=== PATIENT | male | born 1960 | race Caucasian/White ===

== ENCOUNTER 2016-12-15 08:49 | Emergency (ER) | payer OTHER ==
[~2016-12-15] VITALS: Ht 177.8 cm; Wt 95.3 kg
[~2016-12-15 08:49] MED LIST: ASPI650T2 OR; EFFIENT PO; FISHCAP PO; MOTR200T4 PO; MULTIVIT PO; VITAMIN C PO
[2016-12-15] MEDS ORDERED: AMLO2.5T (08:57)
[2016-12-15] MEDS ORDERED: EFFI10TA4 (08:57)
[2016-12-15] MEDS ORDERED: ASPIRIN 81 MG CHEW TABLET PO ONE (09:00)
[2016-12-15] MEDS ORDERED: NS 500 ML IV ONE (09:00)
[2016-12-15] MEDS ORDERED: MORPHINE 4 MG/ML 1ML SYRINGE IV ONE (09:15)
--- NOTE | 2016-12-15 09:27 | REP ---
AP PORTABLE CHEST: 12/15/2016. Clinical history: Chest pain. Comparison: 02/25/2014, 09/27/2011. Findings: The lung gavin are well inflated. There is no effusion, infiltrate, atelectasis or mass. The heart, mediastinal and hilar contours are unchanged and unremarkable. The aorta is mildly tortuous but normal for age. Airway midline. Bones without acute finding. No free air under the diaphragm. Impression: 1. No acute cardiopulmonary change, stable chest. Signed by Sonido Tarango MD 12/15/2016 04:43 P
[2016-12-15] MEDS ORDERED: levETIRAcetam INJection 1,000 MG in D5W 100 ML IV ONE (09:30)
[2016-12-15 09:36] LABS: BASO # 0.1 K/mm3 (0.0-0.2); BASO % 0.5 % (0.0-1.0); EOS # 0.2 K/mm3 (0.0-0.50); EOS % 1.1 % (0.0-3.0); LARGE UNSTAINED CELL # 0.2 K/mm3 (0.0-0.4); LARGE UNSTAINED CELL % 1.7 % (0.0-4.0); LYMPH # 3.3 K/mm3 (1.5-4.5); LYMPH % 23.4 % (24.0-44.0); MEAN CORPUSCULAR HEMOGLOBIN 30.5 pg (27.0-33.0); MEAN CORPUSCULAR HGB CONC 33.5 g/dl (32.0-36.5); MEAN CORPUSCULAR VOLUME 91.2 fl (80.0-96.0); MONO # 0.8 K/mm3 (0.0-0.8); MONO % 5.7 % (0.0-5.0); NEUTROPHILS % 67.5 % (36.0-66.0); PLATELET COUNT, AUTOMATED 200 k/mm3 (150-450); RED CELL DISTRIBUTION WIDTH 13.5 % (11.5-14.5); WHITE BLOOD COUNT 13.3 K/mm3 (4.0-10.0)
[2016-12-15 09:56] LABS: ANION GAP 11 MEQ/L (8-16); BLOOD UREA NITROGEN 9 MG/DL (7-18); CALCIUM LEVEL 9.3 MG/DL (8.5-10.1); CARBON DIOXIDE LEVEL 23 MEQ/L (21-32); CHLORIDE LEVEL 104 MEQ/L (98-107); CREATININE FOR GFR 1.29 MG/DL (0.70-1.30); GLOMERULAR FILTRATION RATE > 60.0 (>56); GLUCOSE, FASTING 113 MG/DL (70-105); POTASSIUM SERUM 3.5 MEQ/L (3.5-5.1); SODIUM LEVEL 138 MEQ/L (136-145)
[2016-12-15] MEDS ORDERED: ISOVUE-370 76% 100ML VIAL (Q9967) As Ordered ONE (10:39)
--- NOTE | 2016-12-15 11:08 | ECGEPIP ---
Stationary ECG Study [facility] - ED Test Date: 2016-12-15 Pat Name: JESUS FREEMAN Department: Room: - Gender: M In[employer]: perfecto : 1960 Requested By: NUNO Vuong Order Number: [id number] Reading MD: Gail Manuel Measurements Intervals [place] Rate: 66 P: -79 [place]: 137 QRS: 22 QRSD: 92 T: -18 QT: 430 QTc: 454 Interpretive Statements JUNCTIONAL RHYTHM MODERATE ST DEPRESSION Electronically Signed On 12-15-2016 11:08:12 EDT by Gail Manuel
--- NOTE | 2016-12-15 12:02 | REP ---
CT ANGIOGRAM OF THE CHEST: TECHNIQUE: Axial contrast enhanced images from the thoracic inlet to the upper abdomen using 100 mL Isovue 370 intravenous contrast material with multiplanar reformations. There is no CT evidence of pulmonary embolism or aortic dissection. Root of the aorta is slightly ectatic at 4 cm. Heart is not enlarged. There is no pleural or pericardial effusion. No adenopathy is seen. No infiltrates are seen. Visualized upper abdominal structures are unremarkable. IMPRESSION: No CT evidence of pulmonary embolism or other acute abnormality. Signed by Blaine Solorio MD 12/15/2016 05:17 P
[2016-12-15] MEDS ORDERED: ENOXAPARIN 100MG/1ML SYRINGE (J1650) SC ONE (12:15)
[2016-12-15 13:12] LABS: CREATININE FOR GFR 1.12 MG/DL (0.70-1.30); GLOMERULAR FILTRATION RATE > 60.0 (>56)
[2016-12-15 13:26] VITALS: BP 127/85
[2016-12-15] MEDS ORDERED: HEPARIN 25,000 UNITS/250 ML D5W BAG (100 UNITS/ML) As Ordered ONE (13:39)
[2016-12-15] MEDS ORDERED: HEPARIN DRIP 25,000 UNITS in APPROPRIATE DILUENT 1 EA IV SCH (13:42)
[2016-12-15] MEDS ORDERED: HEPARIN SOD (PORCINE) 5000 UNITS/ML VIAL IV ONE (13:45)
--- NOTE | 2016-12-17 14:33 | ECGEPIP ---
Stationary ECG Study [facility] - ED Test Date: 2016-12-15 Pat Name: JESUS FREEMAN Department: Room: - Gender: M [employer] Professor: perfecto : 1960 Requested By: NUNO Vuong Order Number: [id number] Reading MD: Gail Manuel Measurements Intervals [place] Rate: 61 P: 55 [place]: 200 QRS: 2 QRSD: 106 T: 60 QT: 465 QTc: 469 Interpretive Statements SINUS RHYTHM NONSPECIFIC T-WAVE ABNORMALITY PROLONGED QT INTERVAL Electronically Signed On 12-17-2016 14:33:24 EDT by Gail Manuel
== END 2016-12-15 13:59 | disposition short-term general hospital (02) ==
LOC: M ED 09:34
DX: I20.0 Unstable angina (principal); R07.9 Chest pain, unspecified; Z95.5 Presence of coronary angioplasty implant and graft; R94.31 Abnormal electrocardiogram [ECG] [EKG]; Z91.89 Other specified personal risk factors, not elsewhere classified; Z88.8 Allergy status to other drugs, medicaments and biological substances; Z88.2 Allergy status to sulfonamides
CPT/HCPCS: 71010; 71275; 80048; 82550; 82553; 82565; 83880; 85025; 93005; 93041; 94760; 96374; 96375; 99285; Q9967

== ENCOUNTER 2017-06-23 14:37 | Emergency (ER) | payer OTHER, SELFPAY ==
[~2017-06-23] VITALS: Ht 172.7 cm; Wt 87.3 kg
[~2017-06-23 14:37] MED LIST changes: +AMLO2.5T; +EFFI10TA4
[2017-06-23] MEDS ORDERED: METO1TAB87 PO (14:57)
[2017-06-23] MEDS ORDERED: ASPI1TAB PO (14:57)
[2017-06-23] MEDS ORDERED: ONDANSETRON 4MG/2ML VIAL (J2405) IV ONE (16:45)
[2017-06-23] MEDS ORDERED: MORPHINE 4 MG/ML 1ML SYRINGE IV ONE ×2 (16:45→18:30)
[2017-06-23] MEDS ORDERED: NS 500 ML IV ONE (16:45)
[2017-06-23 17:10] LABS: BASO # 0.1 10^3/uL (0.0-0.2); BASO % 0.6 % (0.0-1.0); EOS # 0.4 10^3/uL (0.0-0.50); EOS % 3.4 % (0.0-3.0); IMMATURE GRANULOCYTE % 0.5 % (0-0); LYMPH # 2.5 10^3/uL (1.5-4.5); LYMPH % 19.4 % (24.0-44.0); MEAN CORPUSCULAR HGB CONC 31.8 g/dl (32.0-36.5); MEAN CORPUSCULAR VOLUME 94.2 fl (80.0-96.0); MONO % 7.7 % (0.0-5.0); NEUTROPHILS # 8.9 10^3/uL (1.8-7.7); NEUTROPHILS % 68.4 % (36.0-66.0); PLATELET COUNT, AUTOMATED 390 10^3/uL (150-450); RED CELL DISTRIBUTION WIDTH 13.9 % (11.5-14.5); WHITE BLOOD COUNT 13.1 10^3/uL (4.0-10.0)
[2017-06-23 17:20] LABS: INR 1.1
[2017-06-23 17:26] LABS: CALCIUM LEVEL 8.6 MG/DL (8.5-10.1); CREATININE FOR GFR 1.35 MG/DL (0.70-1.30); GLOMERULAR FILTRATION RATE 58.2 (>56); POTASSIUM SERUM 4.8 MEQ/L (3.5-5.1)
[2017-06-23 17:34] LABS: ERYTHROCYTE SEDIMENTATION RATE 51 mm/hr (0-20)
--- NOTE | 2017-06-23 18:40 | REPUSA ---
Clinical history: Pain, swelling. Findings: The common femoral, superficial femoral, popliteal, and other deep venous structures compre ss normally and demonstrate normal color Doppler flow. Normal venous waveforms with augmentation are seen. There is a complex fluid collection along the medial left lower thigh. There is a single enlarg ed left inguinal lymph node. Impression: 1. No evidence of deep vein thrombosis in the left femoral popliteal venous system. 2. Complex fluid collection in the subcutaneous tissues in the lateral left thigh. 3. Single enlarged left inguinal lymph node.
[2017-06-23] MEDS ORDERED: CEFTAROLINE FOSAMIL 600 MG in D5W 50 ML IV ONE (18:45)
[2017-06-23] MEDS ORDERED: CLEO300C2 PO (19:26)
[2017-06-23 19:28] VITALS: BP 105/60
[2017-06-23] MEDS ORDERED: CLINDAMYCIN 150 MG CAP PO ONE (19:30)
== END 2017-06-23 19:39 | disposition left against medical advice (07) ==
LOC: M ED 14:37
DX: L03.314 Cellulitis of groin (principal); L03.116 Cellulitis of left lower limb; Z95.1 Presence of aortocoronary bypass graft; I25.10 Atherosclerotic heart disease of native coronary artery without angina pectoris; I10 Essential (primary) hypertension; R59.0 Localized enlarged lymph nodes; Z79.82 Long term (current) use of aspirin; Z79.899 Other long term (current) drug therapy; Z88.2 Allergy status to sulfonamides; Z88.8 Allergy status to other drugs, medicaments and biological substances; Z91.018 Allergy to other foods
CPT/HCPCS: 80048; 85025; 85610; 85652; 85730; 86140; 87040; 93971; 96361; 96365; 96374; 96375; 99284; J2405

== ENCOUNTER 2018-01-07 12:31 | Emergency (ER) | payer OTHER ==
[2018-01-07 13:53] LABS: BASO % 0.3 % (0.0-1.0); EOS % 0.4 % (0.0-3.0); HEMATOCRIT 44.2 % (42.0-52.0); HEMOGLOBIN 14.9 g/dl (13.5-17.5); IMMATURE GRANULOCYTE % 0.3 % (0-3.0); LYMPH # 1.6 10^3/uL (1.5-4.5); LYMPH % 15.3 % (24.0-44.0); MEAN CORPUSCULAR HGB CONC 33.7 g/dl (32.0-36.5); MEAN CORPUSCULAR VOLUME 89.1 fl (80.0-96.0); MONO # 1.2 10^3/uL (0.0-0.8); MONO % 10.9 % (0.0-5.0); NEUTROPHILS # 7.7 10^3/uL (1.8-7.7); NEUTROPHILS % 72.8 % (36.0-66.0); PLATELET COUNT, AUTOMATED 212 10^3/uL (150-450); RED BLOOD COUNT 4.96 10^6/uL (4.30-6.10); WHITE BLOOD COUNT 10.5 10^3/uL (4.0-10.0)
[2018-01-07] MEDS: ACETAMINOPHEN TAB 650MG DOSE (2X325MG) PO (14:05)
[2018-01-07] MEDS: NS 1,000 ML IV (14:06)
[2018-01-07 14:12] LABS: LACTIC ACID SEPSIS PROTOCOL 0.9 MMOL/L (0.4-2.0)
[2018-01-07 14:12] LABS: ALBUMIN 3.5 GM/DL (3.2-5.2); ALBUMIN/GLOBULIN RATIO 0.88 (1.00-1.93); ALKALINE PHOSPHATASE 91 U/L (45-117); ALT/SGPT 16 U/L (12-78); ANION GAP 7 MEQ/L (8-16); AST/SGOT 10 U/L (7-37); BILIRUBIN,DIRECT 0.1 MG/DL (0.0-0.2); BILIRUBIN,TOTAL 0.5 MG/DL (0.2-1.0); BLOOD UREA NITROGEN 10 MG/DL (7-18); CALCIUM LEVEL 8.3 MG/DL (8.5-10.1); CARBON DIOXIDE LEVEL 27 MEQ/L (21-32); CHLORIDE LEVEL 106 MEQ/L (98-107); CREATININE FOR GFR 1.36 MG/DL (0.70-1.30); GLOMERULAR FILTRATION RATE 57.5 (>56); GLUCOSE, FASTING 113 MG/DL (70-100); POTASSIUM SERUM 3.2 MEQ/L (3.5-5.1); SODIUM LEVEL 140 MEQ/L (136-145); TOTAL PROTEIN 7.5 GM/DL (6.4-8.2)
[2018-01-07 14:16] LABS: KETONE, URINE AUTO RFX NEGATIVE (NEGATIVE); LEUKOCYTE ESTERASE UR AUTO RFX NEGATIVE (NEGATIVE); MUCUS, URINE RFX SMALL (NEGATIVE); NITRITE, URINE AUTO RFX NEGATIVE (NEGATIVE); RBC, URINE AUTO RFX 4 /HPF (0-3); SPECIFIC GRAVITY UR AUTO RFX 1.021 (1.002-1.035); SQUAM EPITHELIAL CELL UR AURFX 0 /HPF (0-6); WBC, URINE AUTO RFX 2 /HPF (0-3)
[2018-01-07] MEDS: cefTRIAXone SOD 1 GM in D5W MINI-BAG PLUS 50 ML IV (15:17)
[2018-01-07] MEDS: POTASSIUM CHLORIDE 10 MEQ SR TABLET PO (15:17)
[2018-01-07] MEDS: AZITHROMYCIN 250 MG TAB PO (15:42)
== END 2018-01-07 15:57 | disposition home or self-care (01) ==
LOC: M ED 12:31
DX: J18.9 Pneumonia, unspecified organism (principal); I25.10 Atherosclerotic heart disease of native coronary artery without angina pectoris; I11.9 Hypertensive heart disease without heart failure; I25.2 Old myocardial infarction; M54.9 Dorsalgia, unspecified; E78.9 Disorder of lipoprotein metabolism, unspecified; Z95.5 Presence of coronary angioplasty implant and graft; Z95.1 Presence of aortocoronary bypass graft; Z87.442 Personal history of urinary calculi; Z87.891 Personal history of nicotine dependence; Z88.2 Allergy status to sulfonamides; Z88.8 Allergy status to other drugs, medicaments and biological substances; Z79.82 Long term (current) use of aspirin; Z79.02 Long term (current) use of antithrombotics/antiplatelets
CPT/HCPCS: J0696

== ENCOUNTER → 2018-09-23 | Outpatient (CLI) | payer OTHER ==
[~2018-09-23] MED LIST changes: -AMLO2.5T; +AMLO2.5T3; +ASPI1TAB PO; +AZIT-12 PO; +BRIL90TA; +CLEO300C2 PO; +GASTROGRAFIN SOLUTION 30ML (Q9963) As Ordered ONE; +IBUP-1022 PO; +ISOVUE-370 76% 100ML VIAL (Q9967) As Ordered ONE; +METO1TAB87 PO
--- NOTE | 2018-09-23 19:38 | REP ---
CT of the abdomen and pelvis with IV and oral contrast for right lower quadrant abdominal pain: Comparison is five 08/01/2015. The visualized lung gavin are unremarkable. The hepatic parenchyma is homogeneous and unremarkable. The gallbladder is unremarkable. The pancreatic duct is diffusely dilated as an interval change measuring up to 8 mm in diameter. There is no peripancreatic inflammation or pseudocyst. The common biliary duct is not dilated. I would recommend follow-up pancreatic MRI to evaluate for pancreatic duct obstructing nodule. The spleen is normal size and unremarkable. The adrenals are unremarkable. The right kidney is unremarkable except for a tiny 5 mm renal cortical cyst at the upper pole. Left knee kidney contains to lower pole exophytic cysts. The largest measures 7.5 cm diameter (7 cm previously). There is a tiny mural calcific plaque along its posterior wall. This is a Bosniak category two simple cyst. There is an exophytic 4 mm left renal lower pole cyst. This is a Bosniak category one simple cyst. The abdominal aorta demonstrates mild aneurysmal dilatation measuring up to 3.0 cm distally. There is no periaortic adenopathy or mass. There is no bowel distension or obstruction. There is wall thickening of the sigmoid colon, nonspecific but could represent colitis in the appropriate clinical setting. There are a few tiny sigmoid colon diverticula without CT evidence of acute diverticulitis. Pelvis: The appendix is unremarkable. There is no ascites or adenopathy. The bladder is unremarkable. Impression: Diffuse dilatation of the pancreatic duct. Follow-up pancreatic MRI is recommended. To large exophytic benign cyst at the lower pole of the left kidney. Sigmoid colon wall thickening compatible with colitis in the appropriate clinical setting. The appendix is unremarkable. The terminal ileum is unremarkable. No adenopathy or ascites. Electronically Signed by Blaine Waterman MD 09/23/2018 07:29 P
== END ==
LOC: M RAD 15:58
PROVIDERS: ATTEND Nurse Practitioner Adult Health
DX: R10.31 Right lower quadrant pain (principal); G89.29 Other chronic pain; K59.00 Constipation, unspecified; N28.1 Cyst of kidney, acquired; K57.30 Diverticulosis of large intestine without perforation or abscess without bleeding
CPT/HCPCS: 74177; Q9963; Q9967

== ENCOUNTER → 2018-11-19 | Outpatient (REF) | payer OTHER ==
[~2018-11-19] MED LIST changes: -ASPI1TAB PO; +ASPI81TA26 PO; -GASTROGRAFIN SOLUTION 30ML (Q9963) As Ordered ONE; -ISOVUE-370 76% 100ML VIAL (Q9967) As Ordered ONE
[2018-11-19 17:14] LABS: ALBUMIN 3.6 GM/DL (3.2-5.2); ALT/SGPT 51 U/L (12-78); BILIRUBIN,TOTAL 0.4 MG/DL (0.2-1.0); BLOOD UREA NITROGEN 12 MG/DL (7-18); CALCIUM LEVEL 9.3 MG/DL (8.5-10.1); CARBON DIOXIDE LEVEL 27 MEQ/L (21-32); CHLORIDE LEVEL 106 MEQ/L (98-107); CREATININE FOR GFR 1.21 MG/DL (0.70-1.30); GLOMERULAR FILTRATION RATE > 60.0 (>56); GLUCOSE, FASTING 135 MG/DL (70-100); POTASSIUM SERUM 4.2 MEQ/L (3.5-5.1); PREALBUMIN 18.6 MG/DL (20.0-40.0); SODIUM LEVEL 138 MEQ/L (136-145); TOTAL PROTEIN 6.7 GM/DL (6.4-8.2)
[2018-11-19 17:20] LABS: BASO # 0.1 10^3/uL (0.0-0.2); BASO % 0.7 % (0.0-1.0); EOS # 0.4 10^3/uL (0.0-0.50); EOS % 3.3 % (0.0-3.0); HEMATOCRIT 42.8 % (42.0-52.0); HEMOGLOBIN 13.9 g/dl (13.5-17.5); LYMPH # 2.4 10^3/uL (1.5-4.5); LYMPH % 21.7 % (24.0-44.0); MEAN CORPUSCULAR HGB CONC 32.5 g/dl (32.0-36.5); MEAN CORPUSCULAR VOLUME 92.2 fl (80.0-96.0); MONO # 0.7 10^3/uL (0.0-0.8); MONO % 6.2 % (0.0-5.0); NEUTROPHILS # 7.5 10^3/uL (1.8-7.7); NEUTROPHILS % 67.6 % (36.0-66.0); PLATELET COUNT, AUTOMATED 392 10^3/uL (150-450); RED BLOOD COUNT 4.64 10^6/uL (4.30-6.10); WHITE BLOOD COUNT 11.2 10^3/uL (4.0-10.0)
== END ==
LOC: M LABDRWAD 15:53
PROVIDERS: ATTEND Surgery
DX: C25.0 Malignant neoplasm of head of pancreas (principal)

== ENCOUNTER → 2018-12-09 | Outpatient (REF) | payer OTHER ==
[2018-12-09 12:46] LABS: BASO # 0.1 10^3/uL (0.0-0.2); BASO % 0.7 % (0.0-1.0); EOS # 0.2 10^3/uL (0.0-0.50); EOS % 2.2 % (0.0-3.0); HEMATOCRIT 44.1 % (42.0-52.0); HEMOGLOBIN 14.1 g/dl (13.5-17.5); LYMPH # 2.1 10^3/uL (1.5-4.5); LYMPH % 23.3 % (24.0-44.0); MEAN CORPUSCULAR HEMOGLOBIN 29.7 pg (27.0-33.0); MONO # 0.6 10^3/uL (0.0-0.8); MONO % 6.1 % (0.0-5.0); NEUTROPHILS # 6.2 10^3/uL (1.8-7.7); NEUTROPHILS % 67.5 % (36.0-66.0); PLATELET COUNT, AUTOMATED 227 10^3/uL (150-450); RED BLOOD COUNT 4.74 10^6/uL (4.30-6.10); WHITE BLOOD COUNT 9.1 10^3/uL (4.0-10.0)
[2018-12-09 13:13] LABS: ALBUMIN 3.7 GM/DL (3.2-5.2); ALT/SGPT 32 U/L (12-78); BILIRUBIN,TOTAL 0.5 MG/DL (0.2-1.0); BLOOD UREA NITROGEN 10 MG/DL (7-18); CALCIUM LEVEL 8.8 MG/DL (8.5-10.1); CARBON DIOXIDE LEVEL 28 MEQ/L (21-32); CHLORIDE LEVEL 107 MEQ/L (98-107); CREATININE FOR GFR 1.12 MG/DL (0.70-1.30); GLOMERULAR FILTRATION RATE > 60.0 (>56); GLUCOSE, FASTING 102 MG/DL (70-100); POTASSIUM SERUM 4.1 MEQ/L (3.5-5.1); PREALBUMIN 23.3 MG/DL (20.0-40.0); SODIUM LEVEL 139 MEQ/L (136-145)
== END ==
LOC: M LABDRWAD 12:13
PROVIDERS: ATTEND Physician Assistant
DX: C25.9 Malignant neoplasm of pancreas, unspecified (principal)

== ENCOUNTER → 2020-01-16 | Outpatient (REF) | payer OTHER ==
[2020-01-16 18:12] LABS: BASO # 0.1 10^3/uL (0.0-0.2); BASO % 0.6 % (0.0-1.0); EOS # 0.1 10^3/uL (0.0-0.5); EOS % 1.6 % (0.0-3.0); HEMATOCRIT 44.5 % (42.0-52.0); HEMOGLOBIN 14.5 g/dl (13.5-17.5); LYMPH % 23.5 % (24.0-44.0); MEAN CORPUSCULAR HEMOGLOBIN 31.4 pg (27.0-33.0); MEAN CORPUSCULAR HGB CONC 32.6 g/dl (32.0-36.5); MEAN CORPUSCULAR VOLUME 96.3 fl (80.0-96.0); MONO # 0.6 10^3/uL (0.0-0.8); NEUTROPHILS # 5.8 10^3/uL (1.5-8.5); NEUTROPHILS % 67.1 % (36.0-66.0); PLATELET COUNT, AUTOMATED 158 10^3/uL (150-450); RED BLOOD COUNT 4.62 10^6/uL (4.30-6.10); WHITE BLOOD COUNT 8.6 10^3/uL (4.0-10.0)
[2020-01-16 18:39] LABS: ALBUMIN 3.7 GM/DL (3.2-5.2); ALT/SGPT 34 U/L (12-78); BILIRUBIN,TOTAL 0.6 MG/DL (0.2-1.0); BLOOD UREA NITROGEN 11 MG/DL (7-18); CALCIUM LEVEL 8.7 MG/DL (8.5-10.1); CARBON DIOXIDE LEVEL 26 MEQ/L (21-32); CHLORIDE LEVEL 110 MEQ/L (98-107); CREATININE FOR GFR 1.19 MG/DL (0.70-1.30); GLOMERULAR FILTRATION RATE > 60.0 (>56); GLUCOSE, FASTING 140 MG/DL (70-100); POTASSIUM SERUM 4.2 MEQ/L (3.5-5.1); SODIUM LEVEL 142 MEQ/L (136-145); TOTAL PROTEIN 6.5 GM/DL (6.4-8.2)
[2020-01-16 19:17] LABS: CA19-9 TUMOR MARKER,CARBOHYDRA 6.6 U/ML (<35.0)
== END ==
LOC: M LABDRWAD 17:05
PROVIDERS: ATTEND Physician Assistant
DX: C25.9 Malignant neoplasm of pancreas, unspecified (principal)

== ENCOUNTER 2024-07-30 12:31 | Day surgery (SDC) | payer OTHER ==
[~2024-07-30] VITALS: Ht 172.7 cm; Wt 71.4 kg
[~2024-07-30 12:31] MED LIST changes: +CIAL10TA PO; -EFFI10TA4; +EFFI10TA7; +LIDOCAINE 2% 100MG/5ML SDV (FOR ANES.) As Ordered ONE; +MIDAZOLAM INJ 2MG/2ML VIAL As Ordered ONE; +PRAS10TA2 PO; +fentaNYL 100 MCG/2 ML INJECTION As Ordered ONE; +propofoL 200 MG/20 ML VIAL As Ordered ONE
[2024-07-30] MEDS: LIDOCAINE 3.5 % 1ML OPHTH TOPICAL GEL OU ONE (13:48)
[2024-07-30] MEDS: POVIDONE-IODINE 5% OPHTH PREP SOL 30ML As Ordered ONE (14:40)
[2024-07-30] MEDS: LIDOCAINE 2% W/EPINEPHRINE 20ML VIAL **PRES FREE As Ordered ONE (14:50)
[2024-07-30] MEDS: CIPROFLOXACIN 0.3% OPHTH OINTMENT As Ordered ONE (14:50)
[2024-07-30 14:58] VITALS: BP 152/78; TEMP 97.8; O2SAT 97
== END 2024-07-30 15:27 | disposition home or self-care (01) ==
LOC: M SDC 12:31
PROVIDERS: ATTEND Ophthalmology
DX: H02.834 Dermatochalasis of left upper eyelid (principal); H02.831 Dermatochalasis of right upper eyelid; I25.10 Atherosclerotic heart disease of native coronary artery without angina pectoris; I25.2 Old myocardial infarction; N40.0 Benign prostatic hyperplasia without lower urinary tract symptoms; Z95.5 Presence of coronary angioplasty implant and graft; Z79.82 Long term (current) use of aspirin; Z79.899 Other long term (current) drug therapy; Z85.07 Personal history of malignant neoplasm of pancreas; Z92.21 Personal history of antineoplastic chemotherapy; Z88.2 Allergy status to sulfonamides; Z88.8 Allergy status to other drugs, medicaments and biological substances
CPT/HCPCS: 15823; 88300; J2250; J3010